=== PATIENT | female | born 1985 | race Caucasian/White ===

== ENCOUNTER 2016-05-15 20:05 | Observation (INO) | payer OTHER ==
[2016-05-15] MEDS ORDERED: Sodium Chloride 0.9% 1000 ML 1,000 ML IV STA (20:18)
[2016-05-15] MEDS ORDERED: TYLENOL 325 MG PO STA (20:18)
[2016-05-15] MEDS ORDERED: Vistaril 50 MG/ML IM ONE ×2 (20:19→20:29)
[2016-05-15 20:27] LABS: Mean Cell Volume 87.8 fl (78-100); Mean Corpuscular Hemoglobin 29.8 pg (26-32); Mean Platelet Volume 9.8 fl (6-9.5); Platelet Count 263 K/mm3 (150-450); Red Blood Count 4.93 M/mm3 (4.1-5.4); White Blood Count 21.9 K/mm3 (4.0-10.5)
[2016-05-15] MEDS ORDERED: Sodium Chloride 0.9% 1000 ML 1,000 ML ONE (20:29)
[2016-05-15] MEDS ORDERED: TYLENOL 325 MG ONE (20:29)
[2016-05-15] MEDS ORDERED: TORAdol 30 mg Injection ONE (20:31)
[2016-05-15] MEDS ORDERED: TORAdol 30 mg Injection IV ONE (20:33)
--- NOTE | 2016-05-15 20:39 | ERPHSYRPT ---
- History of Present Illness Time Seen by Provider: 05/15/16 20:11 Source: patient Patient Subjective Stated Complaint: pt has been in the car all day on a trip to [place] and she began feeling "bad all over " then tonight she started having aching in her chest with weakness no vomiting no shortness of breath - she has been having a heart work up for chest pain and family heart history - she has results of an echo pending -her blood pressure has been up and down recently and her mother has heart history Triage Nursing Assessment: pt is awake and alert but tearful states she just feels so bad Physician History: CC: aches all over Hx: 31 y/o patient of SHARONA Gómez. She has hx of some palpitation and heart problem and is undergoing workup with cardiology for pulmonary hypertension. She has frequent chest pains. Today she drove to [facility] to look at a camper. She developed full body aching, mylagias, hurts all over. Aching and pain in left chest worse than usual. Not short of breath. Normal urination although has had UTI in the past. No headache. No sore throat. Found to have fever right before coming to ER. She has severe malaise and feels terrible. She has not had menses for 3 years due to implants which were recently removed. Timing/Duration: today Severity: severe Allergies/Adverse Reactions: morphine Allergy (Verified 05/15/16 20:33) Home Medications: Propranolol HCl 1 tab PO BID 05/15/16 [History] Hx Tetanus, Diphtheria Vaccination/Date Given: Yes Hx Influenza Vaccination/Date Given: No Hx Pneumococcal Vaccination/Date Given: No Immunizations Up to Date: No - Review of Systems Constitutional: Fever, Chills, Fatigue, Malaise, Weakness Eyes: No Symptoms Ears, Nose, & Throat: No Nose Congestion, No Throat Pain Respiratory: No Cough Cardiac: Chest Pain, No Edema, No Syncope Abdominal/Gastrointestinal: No Abdominal Pain, No Nausea, No Vomiting, No Diarrhea Genitourinary Symptoms: No Dysuria Musculoskeletal: Myalgias, No Joint Redness, No Joint Pain Skin: No Cellulitis, No Rash Neurological: No Focal Weakness, No Headache, No Parasthesia All Other Systems: Reviewed and Negative - Past Medical History Pertinent Past Medical History: Yes Cardiac History: Hypertension - Past Surgical History Past Surgical History: Yes Musculoskeletal: Other Female Surgical History: Section Other Surgical History: Right Ankle - Social History Smoking Status: Never smoker Exposure to second hand smoke: No Patient Lives Alone: No Significant Family History: heart disease - Female History Hx Last Menstrual Period: 3 years - Nursing Vital Signs Nursing Vital Signs: Initial Vital Signs Temperature 99.4 F Temperature Source Oral Pulse Rate [] 72 Pulse Rate 84 Respiratory Rate 16 Blood Pressure [] 126/78 Pain Intensity 1 - Physical Exam General Appearance: alert, other (tearful and upset on arrival) Eye Exam: PERRL/EOMI Ears, Nose, Throat Exam: dry mucous membranes Neck Exam: normal inspection, non-tender, supple, No meningismus Respiratory Exam: normal breath sounds, lungs clear, No respiratory distress Cardiovascular Exam: regular rate/rhythm, normal heart sounds, No murmur, No friction rub, No gallop Gastrointestinal/Abdomen Exam: soft, No tenderness, No distention, No mass, No guarding Back Exam: normal inspection Extremity Exam: normal inspection, normal range of motion, No calf tenderness, No pedal edema Neurologic Exam: alert, oriented x 3, cooperative, sensation nml, No motor deficits Skin Exam: warm, dry, No rash SpO2 Interpretation: normal SpO2: 97 Oxygen Delivery: Room Air - Course Nursing assessment & vital signs reviewed: Yes EKG Interpreted by Me: RATE (102), Sinus Tach, NORMAL AXIS, NORMAL INTERVALS ( QTc 425), NORMAL QRS, NORMAL ST-T - Radiology Exams cxr X-ray Interpretation: Reviewed by me, Negative, No Pneumonia Ordered Tests: Active Orders 24 hr Category Date Time Status Cath for Specimen-Straight STAT Care 05/15/16 20:18 Active EKG-ER Only STAT Care 05/15/16 20:11 Active IV Insertion STAT Care 05/15/16 20:18 Active Pulse Oximetry (ED) STAT Care 05/15/16 20:18 Active CHEST 1 VIEW (PORTABLE) Stat Exams 05/15/16 20:18 Taken BLOOD CULTURE Stat Lab 05/15/16 20:15 Received CBC W DIFF Stat Lab 05/15/16 20:15 Completed CK-Creatinine Phosphokinase Stat Lab 05/15/16 22:05 Ordered CMP Stat Lab 05/15/16 20:15 Completed CRP, HIGH SENSITIVITY Stat Lab 05/15/16 22:05 Ordered CULTURE, THROAT Stat Lab 05/15/16 20:22 Received CULTURE,URINE Stat Lab 05/15/16 20:30 Received Erythrocyte Sedimentation Rate Stat Lab 05/15/16 20:15 Completed HCG QUALITATIVE,SERUM Stat Lab 05/15/16 20:15 Completed Lactic Acid Urgent Lab 05/15/16 20:22 Completed Manual Differential NC Stat Lab 05/15/16 20:15 Completed [place] Screen Stat Lab 05/15/16 22:10 Ordered RHEUMATOID FACTOR Stat Lab 05/15/16 22:05 Ordered STREP SCREEN-BETA A Stat Lab 05/15/16 20:22 Completed TROPONIN Stat Lab 05/15/16 20:15 Completed TSH [TSH, 3RD Generation] Stat Lab 05/15/16 22:10 Ordered UA W/ MICROSCOPIC Stat Lab 05/15/16 20:30 Completed Medication Summary Generic Name Dose Route Start Last Admin Trade Name Freq PRN Reason Stop Dose Admin Ceftriaxone Sodium/Dextrose 50 mls @ 100 mls/hr 05/15/16 22:11 Rocephin 1 Gm-D5w 50 Ml Bag IV 05/15/16 22:40 STAT ONE Discontinued Medications Generic Name Dose Route Start Last Admin Trade Name Freq PRN Reason Stop Dose Admin Acetaminophen 975 mg 05/15/16 20:18 05/15/16 20:39 Tylenol 325 Mg PO 05/15/16 20:19 975 mg STAT STA Administration Acetaminophen Confirm 05/15/16 20:29 Tylenol 325 Mg Administered 05/15/16 20:30 Dose 975 mg .ROUTE .STK-MED ONE Hydroxyzine HCl 50 mg 05/15/16 20:19 05/15/16 20:38 Vistaril 50 Mg/Ml IM 05/15/16 20:20 50 mg STAT ONE Administration Hydroxyzine HCl Confirm 05/15/16 20:29 Vistaril 50 Mg/Ml Administered 05/15/16 20:30 Dose 50 mg IM .STK-MED ONE Sodium Chloride 1,000 mls @ 999 mls/hr 05/15/16 20:18 05/15/16 20:40 Sodium Chloride 0.9% 1000 Ml IV 05/15/16 21:18 999 mls/hr .Q1H1M STA Administration Sodium Chloride Confirm 05/15/16 20:29 Sodium Chloride 0.9% 1000 Ml Administered 05/15/16 20:30 Dose 1,000 mls @ ud .ROUTE .STK-MED ONE Ketorolac Tromethamine 30 mg 05/15/16 20:33 05/15/16 20:38 Toradol 30 Mg Injection IV 05/15/16 20:34 30 mg STAT ONE Administration Ketorolac Tromethamine Confirm 05/15/16 20:31 Toradol 30 Mg Injection Administered 05/15/16 20:32 Dose 30 mg .ROUTE .K-[facility] ONE Lab/Rad Data: Laboratory Result Diagrams 05/15/16 20:15 05/15/16 20:15 Laboratory Results 05/15/16 05/15/16 05/15/16 Range/Units 20:30 20:22 20:22 WBC (4.0-10.5) K/mm3 RBC (4.1-5.4) M/mm3 Hgb (12.0-16.0) gm/dl Hct (35-47) % MCV (78-100) fl MCH (26-32) pg MCHC (32-36) g/dl RDW (11.5-14.0) % Plt Count (150-450) K/mm3 MPV (6-9.5) fl Segmented Neutrophils (36.0-66.0) % Lymphocytes (Manual) (24-44) % Monocytes (Manual) (0.0-12.0) % Eosinophils (Manual) (0.00-3.0) % Differential Comment Platelet Estimate (NORMAL) ESR (0-20) mm/hr Sodium (136-145) mEq/L Potassium (3.5-5.1) mEq/L Chloride (98-107) mEq/L Carbon Dioxide (21-32) mEq/L Anion Gap (5-15) MEQ/L BUN (9-20) mg/dL Creatinine (0.55-1.30) mg/dl Estimated GFR ML/MIN Glucose (70-110) MG/DL Lactic Acid 1.8 (0.4-2.0) Calcium (8.5-10.1) mg/dL Total Bilirubin (0.2-1.0) mg/dL AST (15-37) U/L ALT (12-78) U/L Alkaline Phosphatase (46-116) U/L Troponin I (0.000-0.056) ng/ml Serum Total Protein (6.4-8.2) gm/dL Albumin (3.4-5.0) g/dL Serum , Qual (Negative) Ur Collection Type CLEAN CATCH Urine Color YELLOW (YELLOW) Urine Appearance SLIGHTLY CLOUDY (CLEAR) Urine pH 7.0 (5-6) Ur Specific [place] 1.010 (1.005-1.025) Urine Protein NEGATIVE (Negative) Urine Glucose (UA) NEGATIVE (NEGATIVE) mg/dL Urine Ketones NEGATIVE (NEGATIVE) Urine Nitrite NEGATIVE (NEGATIVE) Urine Bilirubin NEGATIVE (NEGATIVE) Urine Urobilinogen 0.2 (0-1) mg/dL Urine WBC (Auto) SMALL (NEGATIVE) Urine RBC (Auto) NEGATIVE (0-5) Adam/ul Urine Microscopic WBC 2-5 (0-5) /HPF Ur Epithelial Cells FEW (FEW) /HPF Urine Bacteria MODERATE (NEGATIVE) /HPF Influenza Type A Ag NEGATIVE (NEGATIVE) Influenza Type B Ag NEGATIVE (NEGATIVE) RSV (PCR) NEGATIVE (Negative) Streptococcus Screen (Negative) Specimen Received 11/07/16:202905/15/16 05/15/16 05/15/16 Range/Units 20:22 20:15 20:15 WBC (4.0-10.5) K/mm3 RBC (4.1-5.4) M/mm3 Hgb (12.0-16.0) gm/dl Hct (35-47) % MCV (78-100) fl MCH (26-32) pg MCHC (32-36) g/dl RDW (11.5-14.0) % Plt Count (150-450) K/mm3 MPV (6-9.5) fl Segmented Neutrophils (36.0-66.0) % Lymphocytes (Manual) (24-44) % Monocytes (Manual) (0.0-12.0) % Eosinophils (Manual) (0.00-3.0) % Differential Comment Platelet Estimate (NORMAL) ESR 12 (0-20) mm/hr Sodium (136-145) mEq/L Potassium (3.5-5.1) mEq/L Chloride (98-107) mEq/L Carbon Dioxide (21-32) mEq/L Anion Gap (5-15) MEQ/L BUN (9-20) mg/dL Creatinine (0.55-1.30) mg/dl Estimated GFR ML/MIN Glucose (70-110) MG/DL Lactic Acid (0.4-2.0) Calcium (8.5-10.1) mg/dL Total Bilirubin (0.2-1.0) mg/dL AST (15-37) U/L ALT (12-78) U/L Alkaline Phosphatase (46-116) U/L Troponin I < 0.017 (0.000-0.056) ng/ml Serum Total Protein (6.4-8.2) gm/dL Albumin (3.4-5.0) g/dL Serum , Qual (Negative) Ur Collection Type Urine Color (YELLOW) Urine Appearance (CLEAR) Urine pH (5-6) Ur Specific [place]man (1.005-1.025) Urine Protein (Negative) Urine Glucose (UA) (NEGATIVE) mg/dL Urine Ketones (NEGATIVE) Urine Nitrite (NEGATIVE) Urine Bilirubin (NEGATIVE) Urine Urobilinogen (0-1) mg/dL Urine WBC (Auto) (NEGATIVE) Urine RBC (Auto) (0-5) Adam/ul Urine Microscopic WBC (0-5) /HPF Ur Epithelial Cells (FEW) /HPF Urine Bacteria (NEGATIVE) /HPF Influenza Type A Ag (NEGATIVE) Influenza Type B Ag (NEGATIVE) RSV (PCR) (Negative) Streptococcus Screen NEGATIVE (Negative) Specimen Received 05/15/16 05/15/16 05/15/16 Range/Units 20:15 20:15 20:15 WBC 21.9 H (4.0-10.5) K/mm3 RBC 4.93 (4.1-5.4) M/mm3 Hgb 14.7 (12.0-16.0) gm/dl Hct 43.3 (35-47) % MCV 87.8 (78-100) fl MCH 29.8 (26-32) pg MCHC 33.9 (32-36) g/dl RDW 13.0 (11.5-14.0) % Plt Count 263 (150-450) K/mm3 MPV 9.8 H (6-9.5) fl Segmented Neutrophils 78 H (36.0-66.0) % Lymphocytes (Manual) 13 L (24-44) % Monocytes (Manual) 8 (0.0-12.0) % Eosinophils (Manual) 1 (0.00-3.0) % Differential Comment NORMAL Platelet Estimate NORMAL (NORMAL) ESR (0-20) mm/hr Sodium 139 (136-145) mEq/L Potassium 3.7 (3.5-5.1) mEq/L Chloride 102 (98-107) mEq/L Carbon Dioxide 26.2 (21-32) mEq/L Anion Gap 14.3 (5-15) MEQ/L BUN 11 (9-20) mg/dL Creatinine 0.83 (0.55-1.30) mg/dl Estimated GFR > 60 ML/MIN Glucose 129 H (70-110) MG/DL Lactic Acid (0.4-2.0) Calcium 9.2 (8.5-10.1) mg/dL Total Bilirubin 0.4 (0.2-1.0) mg/dL AST 16 (15-37) U/L ALT 33 (12-78) U/L Alkaline Phosphatase 86 (46-116) U/L Troponin I (0.000-0.056) ng/ml Serum Total Protein 7.9 (6.4-8.2) gm/dL Albumin 3.7 (3.4-5.0) g/dL Serum , Qual NEGATIVE (Negative) Ur Collection Type Urine Color (YELLOW) Urine Appearance (CLEAR) Urine pH (5-6) Ur Specific [place]man (1.005-1.025) Urine Protein (Negative) Urine Glucose (UA) (NEGATIVE) mg/dL Urine Ketones (NEGATIVE) Urine Nitrite (NEGATIVE) Urine Bilirubin (NEGATIVE) Urine Urobilinogen (0-1) mg/dL Urine WBC (Auto) (NEGATIVE) Urine RBC (Auto) (0-5) Adam/ul Urine Microscopic WBC (0-5) /HPF Ur Epithelial Cells (FEW) /HPF Urine Bacteria (NEGATIVE) /HPF Influenza Type A Ag (NEGATIVE) Influenza Type B Ag (NEGATIVE) RSV (PCR) (Negative) Streptococcus Screen (Negative) Specimen Received - Progress Progress Note: 05/15/16 20:39 She has fever. Likley influenza with myalgias. Will treat with APAP, toradol, IVF. 05/15/16 22:02 Flu negative. She has fever and leukocytosis. Malaise and lethargy. She reports hx of JRA as a child. No recent steroids. Had echo and renal sonogram Tuesday- echo not available and renal doppler negative. She sees cardiology Dr Hernandez at [place]. Offered observation for further workup to include infectious and connective tissue. She is discussing with family. She ambulated to . IVF bolus given. 05/15/16 22:12 Pt agrees for observation. Called Dr Bowie. Connective tissue workup initiated. Will place in obs for IVF and further workup. Cultures pending. Will cover with rocephin. Discussed with Dr.: Jamir Will see patient in: hospital (observation) Counseled pt/family regarding: lab results, diagnosis, need for follow-up, rad results - Departure Time of Disposition: 22:13 Departure Disposition: Observation Clinical Impression: Fever, Leukocytosis, Hx of juvenile rheumatoid arthritis Condition: Fair Critical Care Time: No Referrals: LUCIANO GÓMEZ [Primary Care Provider] -
[2016-05-15 20:43] LABS: ALBUMIN 3.7 g/dL (3.4-5.0); ALKALINE PHOSPHATASE 86 U/L (46-116); ANION GAP 14.3 MEQ/L (5-15); BILIRUBIN,TOTAL 0.4 mg/dL (0.2-1.0); BLOOD UREA NITROGEN 11 mg/dL (9-20); CHLORIDE 102 mEq/L (98-107); Carbon Dioxide 26.2 mEq/L (21-32); Glucose 129 MG/DL (70-110); Potassium 3.7 mEq/L (3.5-5.1); SGOT/AST 16 U/L (15-37); SGPT/ALT 33 U/L (12-78); SODIUM 139 mEq/L (136-145); Total Protein 7.9 gm/dL (6.4-8.2)
[2016-05-15 21:01] LABS: Bacteria MODERATE /HPF (NEGATIVE); COMPLETE URINE MICROSCOPIC? YES; Collection Type CLEAN CATCH; Epithelial Cells FEW /HPF (FEW)
[2016-05-15 21:14] LABS: Eosinophil 1 % (0.00-3.0); Platelet Estimate NORMAL (NORMAL); Total Cells Counted 100
[2016-05-15] MEDS ORDERED: ROCEPHIN 1 Gm-D5w 50 ml Bag** 50 ML IV ONE ×2 (22:11→22:20)
[2016-05-15] MEDS ORDERED: TORAdol 30 mg Injection IV PRN (23:05)
[2016-05-15] MEDS ORDERED: TYLENOL 325 MG PO PRN (23:05)
[2016-05-15] MEDS: D5W/0.45NS W/ 20mEq KCl 1000 ML 1,000 ML IV SCH (23:09)
[2016-05-16 05:58] LABS: BASOPHIL % 0.2 % (0.0-0.4); Eosinophil % 1.5 % (0.00-5.0); Granulocytes % 64.9 % (36.0-66.0); Mean Cell Volume 90.3 fl (78-100); Mean Corpuscular Hemoglobin 30.2 pg (26-32); Mean Platelet Volume 9.7 fl (6-9.5); Monocytes % 9.4 % (0.0-12.0); Platelet Count 216 K/mm3 (150-450); Red Blood Count 4.24 M/mm3 (4.1-5.4); Red Cell Distribution Width 12.9 % (11.5-14.0); White Blood Count 13.7 K/mm3 (4.0-10.5)
[2016-05-16 06:09] LABS: ALBUMIN 2.8 g/dL (3.4-5.0); ALKALINE PHOSPHATASE 69 U/L (46-116); ANION GAP 11.6 MEQ/L (5-15); BILIRUBIN,TOTAL 0.3 mg/dL (0.2-1.0); BLOOD UREA NITROGEN 12 mg/dL (9-20); CHLORIDE 109 mEq/L (98-107); Carbon Dioxide 25.3 mEq/L (21-32); Glucose 104 MG/DL (70-110); Potassium 3.6 mEq/L (3.5-5.1); SGOT/AST 31 U/L (15-37); SGPT/ALT 29 U/L (12-78); SODIUM 142 mEq/L (136-145); Total Protein 6.2 gm/dL (6.4-8.2)
[2016-05-16] MEDS: D5W/0.45NS W/ 20mEq KCl 1000 ML 1,000 ML IV SCH (07:00)
--- NOTE | 2016-05-16 08:55 | XRAY ---
Indication: Fever, lethargy, malaise, and elevated WBC. Comparison: None Portable chest demonstrates normal heart and lungs. Bony thorax intact with mild double curvature scoliosis.
--- NOTE | 2016-05-16 12:18 | PCM.SSS ---
History of Present Illness - Chief Complaint Chief Complaint: FEVER AND LEUKOCYTOSIS History of Present Illness: is a 31 year old female with a long at times nonspecific medical history who came to ER last night c/o several hours of myalgias and found to have a fever. Her WBC were elevated to 21,000 but otherwise her findings were nonspecific. She notes that for the past 3 wks she has been undergoing a cardiac workup after being found to have BP in the 150s systolic at her routine [facility] appointment. Of note, her appointments with [facility] [employer] Luciano Gómez revealed normal BP. 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 Pt states for the past 4 mo she has had consistent sinus, ear, and throat issues and was having several x/wk nose bleeds. Was treated multiple times with antibiotics. Has episodes of lightheadedness and palpitations - being evaluated by cardiology. - Review of Systems Constitutional: Fever, Fatigue, Malaise Ears, Nose, & Throat: Ear Pain, Sinus Drainage, Epistaxis, Throat Pain Cardiac: Palpitations Musculoskeletal: Arthralgias, Joint Pain, Myalgias Neurological: Dizziness Hematologic/Lymphatic: Easy Bleeding All Other Systems: Reviewed and Negative Medications & Allergies Home Medications: Home Medication List Cefdinir 300 mg PO BID #20 capsule 05/16/16 [Rx] Propranolol HCl [Inderal LA] 60 mg PO BID 05/16/16 [History Confirmed 05/16/16] Allergies/Adverse Reactions: Allergies Allergy/AdvReac Type Severity Reaction Status Date / Time morphine Allergy Severe Difficulty Verified 05/16/16 00:11 Breathing - Past Medical History Past Medical History: Yes Neurological History: Migraines ENT History: No Pertinent History Cardiac History: Hypertension Respiratory History: No Pertinent History Endocrine Medical History: No Pertinent History Musculoskelatal History: Fractures, Other History: Other Pyscho-Social History: No Pertinent History Reproductive Disorders: No Pertinent History Comment: HAS FX BOTH ANKLES THERE IS A SCREW IN THE RIGHT ANKEL. PT ALSO HAS A HX OF JUVINILE ARTHRITIS - Female History Hx Last Menstrual Period: 3 years Are you now?: No - Past Surgical History Past Surgical History: Yes Neuro Surgical History: No Pertinent History Cardiac History: No Pertinent History Respiratory Surgery: No Pertinent History GI Surgical History: No Pertinent History Genitourinary Surgical Hx: No Pertinent History Musculskeletal Surgical Hx: Other Female Surgical History: Section Other Surgical History: 3 CE SECTIONS, ORTHO SURGERY ON BOTH ANKLES - Social History Smoking Status: Never smoker Exposure to second hand smoke: No Alcohol: None Drug Use: none Significant Family History: heart disease - Physical Exam Vital Signs: Vital Signs - 24 hr Temp Pulse Pulse Resp BP Pulse Ox 05/16/16 11:20 98.5 F 71 17 89/53 96 05/16/16 08:00 98 F 71 18 119/73 96 05/16/16 04:00 97.8 F 80 18 110/62 96 05/15/16 23:30 99.1 F 83 16 102/52 97 05/15/16 22:13 97 05/15/16 21:52 84 16 126/78 97 05/15/16 21:15 99.4 F 96 H 16 130/87 97 05/15/16 20:35 72 97 05/15/16 20:17 101.6 F 100 H 16 130/80 97 General Appearance: no apparent distress Neurologic Exam: alert, oriented x 3, cooperative Eye Exam: eyes nml inspection Neck Exam: normal inspection, non-tender, No lymphadenopathy Respiratory Exam: normal breath sounds, lungs clear, No crackles/rales, No rhonchi, No wheezing Cardiovascular Exam: regular rate/rhythm, normal heart sounds, No murmur Gastrointestinal/Abdomen Exam: soft, normal bowel sounds, No tenderness, No distention, No guarding, No rebound Back Exam: normal inspection, No CVA tenderness Extremity Exam: No pedal edema, No swelling Skin Exam: normal color, warm, dry Results - Labs Lab/Micro Results: Lab Results-Last 24 Hours 05/16/16 05/16/16 Range/Units 05:30 05:30 WBC 13.7 H (4.0-10.5) K/mm3 RBC 4.24 (4.1-5.4) M/mm3 Hgb 12.8 (12.0-16.0) gm/dl Hct 38.3 (35-47) % MCV 90.3 (78-100) fl MCH 30.2 (26-32) pg MCHC 33.4 (32-36) g/dl RDW 12.9 (11.5-14.0) % Plt Count 216 (150-450) K/mm3 MPV 9.7 H (6-9.5) fl Gran % 64.9 (36.0-66.0) % Lymphocytes % 24.0 (24.0-44.0) % Monocytes % 9.4 (0.0-12.0) % Eosinophils % 1.5 (0.00-5.0) % Basophils % 0.2 (0.0-0.4) % Basophils # 0.03 (0-0.4) Sodium 142 (136-145) mEq/L Potassium 3.6 (3.5-5.1) mEq/L Chloride 109 H (98-107) mEq/L Carbon Dioxide 25.3 (21-32) mEq/L Anion Gap 11.6 (5-15) MEQ/L BUN 12 (9-20) mg/dL Creatinine 0.77 (0.55-1.30) mg/dl Estimated GFR > 60 ML/MIN Glucose 104 (70-110) MG/DL Calcium 8.3 L (8.5-10.1) mg/dL Total Bilirubin 0.3 (0.2-1.0) mg/dL AST 31 (15-37) U/L ALT 29 (12-78) U/L Alkaline Phosphatase 69 (46-116) U/L Serum Total Protein 6.2 L (6.4-8.2) gm/dL Albumin 2.8 L (3.4-5.0) g/dL Assessment/Plan (1) Fever Current Visit: Yes Status: Acute Assessment & Plan: unsure etiology; will send pt home on po cefdinir 300mg 1 po BID x 10d. She is to f/u with PCP and get referral to rheumatology. Throat, urine, and blood cultures pending. Code(s): R50.9 - FEVER, UNSPECIFIED (2) Hx of juvenile rheumatoid arthritis Current Visit: Yes Status: Acute Assessment & Plan: Initial rheum workup pending. Code(s): Z87.39 - PERSONAL HISTORY OF DISEASES OF THE MS SYS AND CONN TISS (3) Leukocytosis Current Visit: Yes Status: Acute Qualifiers: Leukocytosis type: unspecified Qualified Code(s): D72.829 - Elevated white blood cell count, unspecified Assessment & Plan: WIth left shift. Cultures are pending. Unknown etiology; however, will go ahead and treat as above. Code(s): D72.829 - ELEVATED WHITE BLOOD CELL COUNT, UNSPECIFIED Hospital Summary - Hospital Course Hospital Course: Pt admitted with myalgias and fever, elevated WBC count to 21,000. Treated with IV rocephin even though any possible nidus of infection is unknown. WBC decreased today and pt feeling better; still fatigued (notes this has been present for the past 2 weeks). Rheumatological workup started. CRP elevated, RF neg; other labs pending. Will f/u with PCP and rheumatology; continue cardiology workup. Home on po antibiotics. - Vitals & Intake/Output Vital Signs: Vital Signs Temperature 98.5 F 05/16/16 11:20 Pulse Rate 71 05/16/16 11:20 Respiratory Rate 17 05/16/16 11:20 Blood Pressure 89/53 05/16/16 11:20 O2 Sat by Pulse Oximetry 96 05/16/16 11:20 Intake & Output: Intake & Output 05/14/16 05/15/16 05/16/16 05/17/16 11:59 11:59 11:59 11:59 Intake Total 1776 Balance 1776 Weight 92.986 kg - Lab Result Diagrams: 05/16/16 05:30 05/16/16 05:30 Lab Results-Last 24 Hrs: Lab Results-Last 24 Hours 05/16/16 05/16/16 Range/Units 05:30 05:30 WBC 13.7 H (4.0-10.5) K/mm3 RBC 4.24 (4.1-5.4) M/mm3 Hgb 12.8 (12.0-16.0) gm/dl Hct 38.3 (35-47) % MCV 90.3 (78-100) fl MCH 30.2 (26-32) pg MCHC 33.4 (32-36) g/dl RDW 12.9 (11.5-14.0) % Plt Count 216 (150-450) K/mm3 MPV 9.7 H (6-9.5) fl Gran % 64.9 (36.0-66.0) % Lymphocytes % 24.0 (24.0-44.0) % Monocytes % 9.4 (0.0-12.0) % Eosinophils % 1.5 (0.00-5.0) % Basophils % 0.2 (0.0-0.4) % Basophils # 0.03 (0-0.4) Sodium 142 (136-145) mEq/L Potassium 3.6 (3.5-5.1) mEq/L Chloride 109 H (98-107) mEq/L Carbon Dioxide 25.3 (21-32) mEq/L Anion Gap 11.6 (5-15) MEQ/L BUN 12 (9-20) mg/dL Creatinine 0.77 (0.55-1.30) mg/dl Estimated GFR > 60 ML/MIN Glucose 104 (70-110) MG/DL Calcium 8.3 L (8.5-10.1) mg/dL Total Bilirubin 0.3 (0.2-1.0) mg/dL AST 31 (15-37) U/L ALT 29 (12-78) U/L Alkaline Phosphatase 69 (46-116) U/L Serum Total Protein 6.2 L (6.4-8.2) gm/dL Albumin 2.8 L (3.4-5.0) g/dL - Discharge Disposition: Home, Self-Care Condition: Stable Prescriptions: New Cefdinir 300 mg PO BID #20 capsule Continue Propranolol HCl [Inderal LA] 60 mg PO BID Follow up with: LUCIANO GÓMEZ [NON-STAFF PHY W/O PRIVILEGES] -
[2016-05-16 13:41] VITALS: BP 111/58; PULSE 70; O2SAT 99
[2016-05-16] MEDS ORDERED: ROCEPHIN 1 Gm-D5w 50 ml Bag** 50 ML IV SCH (22:00)
== END 2016-05-16 14:05 | disposition home or self-care (01) ==
LOC: ED 20:05 → MED SURG 22:55
PROVIDERS: ADMIT Family Medicine; ATTEND Family Medicine
DX: R50.9 Fever, unspecified (principal); Z87.39 Personal history of other diseases of the musculoskeletal system and connective tissue; D72.829 Elevated white blood cell count, unspecified; Z79.899 Other long term (current) drug therapy
CPT/HCPCS: 36000; 36415; 71010; 80053; 81000; 82550; 83605; 84443; 84484; 84703; 85025; 85652; 86038; 86140; 86160; 86308; 86430; 87040; 87070; 87077; 87086; 87430; 87631; 93005; 96360; 96365; 96372; 96374; 99285; G0378; J0696; J1885; J3410; P9612

== ENCOUNTER 2017-02-21 16:00 | Emergency (ER) | payer BC, OTHER ==
[2017-02-21] MEDS ORDERED: Phenergan 25 MG INJ IM ONE (16:26)
--- NOTE | 2017-02-21 16:30 | ERPHSYRPT ---
- History of Present Illness Time Seen by Provider: 02/21/17 16:21 Historian: patient, family (mother) Patient Subjective Stated Complaint: Pt states "I think I have food poisening. I ate scallops at [employer] last night at 8 pm and woke up this morning vomiting, diarrhea, belly pain, headache. I cannot keep anything down." Triage Nursing Assessment: Pt alert and oriented X3, skin pwd. PT moaning. Pt ambulates with an upright steady gait, able to speak in clear full sentences. Physician History: CC: vomiting/diarrhea Hx: 32 y/o patient of Dr Bowie with nausea, vomiting, diarrhea since 3AM. Muscle aches. Hurts all over. No fever. Abdominal discomfort. Ate shrimp scampi at [employer] at 8PM. No one else in her constitution party ate this nor is anyone else ill. Symptoms severe. 3 prior C-sections. Timing/Duration: today Allergies/Adverse Reactions: morphine Allergy (Severe, Verified 05/16/16 00:11) Difficulty Breathing Home Medications: Lisdexamfetamine Dimesylate [Vyvanse] 40 mg PO DAILY 02/21/17 [History] Hx Tetanus, Diphtheria Vaccination/Date Given: No Hx Influenza Vaccination/Date Given: No Hx Pneumococcal Vaccination/Date Given: No Immunizations Up to Date: Yes - Review of Systems Constitutional: Malaise, Weakness, No Fever, No Chills Eyes: No Symptoms Ears, Nose, & Throat: No Symptoms Respiratory: No Symptoms Cardiac: No Chest Pain Abdominal/Gastrointestinal: Abdominal Pain, Nausea, Vomiting, Diarrhea Genitourinary Symptoms: No Symptoms Musculoskeletal: Myalgias Skin: No Rash Neurological: No Focal Weakness, No Parasthesia All Other Systems: Reviewed and Negative - Past Medical History Pertinent Past Medical History: Yes Neurological History: Migraines ENT History: No Pertinent History Cardiac History: Hypertension Respiratory History: No Pertinent History Endocrine Medical History: No Pertinent History Musculoskeletal History: Fractures, Other History: Other Psycho-Social History: No Pertinent History Female Reproductive Disorders: No Pertinent History Other Medical History: JRA- lupus - Past Surgical History Past Surgical History: Yes Neuro Surgical History: No Pertinent History Cardiac: No Pertinent History Respiratory: No Pertinent History Gastrointestinal: No Pertinent History Genitourinary: No Pertinent History Musculoskeletal: Other Female Surgical History: Section Other Surgical History: 3 CE SECTIONS, ORTHO SURGERY ON BOTH ANKLES - Social History Smoking Status: Never smoker Exposure to second hand smoke: No Drug Use: none Patient Lives Alone: No Significant Family History: heart disease - Female History Hx Last Menstrual Period: 02/14/2017 Hx Now: No - Nursing Vital Signs Nursing Vital Signs: Initial Vital Signs Temperature 98.7 F 02/21/17 16:11 Pulse Rate 88 02/21/17 16:11 Respiratory Rate 18 02/21/17 16:11 Blood Pressure 107/75 02/21/17 16:11 O2 Sat by Pulse Oximetry 99 02/21/17 16:11 Pain Scale Pain Intensity 6 - Physical Exam General Appearance: alert Eye Exam: PERRL/EOMI Ears, Nose, Throat Exam: normal ENT inspection, moist mucous membranes Neck Exam: normal inspection, non-tender, supple Respiratory Exam: No respiratory distress Cardiovascular Exam: regular rate/rhythm Gastrointestinal/Abdomen Exam: soft, No distention, No mass, No guarding Back Exam: normal inspection, No vertebral tenderness Extremity Exam: normal inspection, normal range of motion, No pedal edema Neurologic Exam: alert, oriented x 3, cooperative, sensation nml, No motor deficits Skin Exam: warm, dry SpO2 Interpretation: normal SpO2: 99 Oxygen Delivery: Room Air - Course Nursing assessment & vital signs reviewed: Yes - Radiology Exams AAS X-ray Interpretation: Interpreted by me (Nonspecific bowel gas pattern, scoliosis, no obstructions) Ordered Tests: Active Orders 24 hr Category Date Time Status Cath for Specimen-Straight STAT Care 02/21/17 16:27 Active IV Insertion STAT Care 02/21/17 16:26 Active OBSTR/ACUTE ABDOMEN SERIES Stat Exams 02/21/17 16:26 Taken CBC W DIFF Stat Lab 02/21/17 16:43 Completed CK-Creatinine Phosphokinase Stat Lab 02/21/17 16:43 Completed CMP Stat Lab 02/21/17 16:43 Completed CULTURE,URINE Stat Lab 02/21/17 16:55 Received HCG QUALITATIVE,SERUM Stat Lab 02/21/17 16:43 Completed UA W/ MICROSCOPIC Stat Lab 02/21/17 16:55 Completed Medication Summary Generic Name Dose Route Start Last Admin Trade Name Freq PRN Reason Stop Dose Admin Lactated Ringer's 1,000 mls @ 999 mls/hr 02/21/17 17:16 02/21/17 17:24 Lactated Ringers IV 02/21/17 18:16 999 mls/hr .Q1H1M ONE Administration Discontinued Medications Generic Name Dose Route Start Last Admin Trade Name Makenna PRN Reason Stop Dose Admin Lactated Ringer's Confirm 02/21/17 17:19 Lactated Ringers Administered 02/21/17 17:20 Dose 1,000 mls @ ud IV .STK-MED ONE Ketorolac Tromethamine 30 mg 02/21/17 17:15 02/21/17 17:26 Toradol 30 Mg Injection IV 02/21/17 17:16 30 mg STAT ONE Administration Ketorolac Tromethamine Confirm 02/21/17 17:19 Toradol 30 Mg Injection Administered 02/21/17 17:20 Dose 30 mg .ROUTE .STK-MED ONE Promethazine HCl 25 mg 02/21/17 16:26 02/21/17 16:47 Phenergan 25 Mg Inj IM 02/21/17 16:27 25 mg STAT ONE Administration Promethazine HCl Confirm 02/21/17 16:45 Phenergan 25 Mg Inj Administered 02/21/17 16:46 Dose 25 mg .ROUTE .STK-MED ONE Lab/Rad Data: Laboratory Result Diagrams 02/21/17 16:43 02/21/17 16:43 Laboratory Results 02/21/17 02/21/17 02/21/17 Range/Units 16:55 16:43 16:43 WBC (4.0-10.5) K/mm3 RBC (4.1-5.4) M/mm3 Hgb (12.0-16.0) gm/dl Hct (35-47) % MCV (78-100) fl MCH (26-32) pg MCHC (32-36) g/dl RDW (11.5-14.0) % Plt Count (150-450) K/mm3 MPV (6-9.5) fl Gran % (36.0-66.0) % Lymphocytes % (24.0-44.0) % Monocytes % (0.0-12.0) % Eosinophils % (0.00-5.0) % Basophils % (0.0-0.4) % Basophils # (0-0.4) Sodium (136-145) mEq/L Potassium (3.5-5.1) mEq/L Chloride (98-107) mEq/L Carbon Dioxide (21-32) mEq/L Anion Gap (5-15) MEQ/L BUN (9-20) mg/dL Creatinine (0.55-1.30) mg/dl Estimated GFR ML/MIN Glucose (70-110) MG/DL Calcium (8.5-10.1) mg/dL Total Bilirubin (0.2-1.0) mg/dL AST (15-37) U/L ALT (12-78) U/L Alkaline Phosphatase (46-116) U/L Creatine Kinase 56 (26-192) U/L Serum Total Protein (6.4-8.2) gm/dL Albumin (3.4-5.0) g/dL Serum , Qual NEGATIVE (Negative) Ur Collection Type VOID Urine Color YELLOW (YELLOW) Urine Appearance CLEAR (CLEAR) Urine pH 7.0 (5-6) Ur Specific [place] 1.010 (1.005-1.025) Urine Protein TRACE (Negative) Urine Ketones NEGATIVE (NEGATIVE) Urine Blood 5-10 (0-5) Adam/ul Urine Nitrite NEGATIVE (NEGATIVE) Urine Bilirubin SMALL (NEGATIVE) Urine Urobilinogen NORMAL (0-1) mg/dL Ur Leukocyte Esterase TRACE (NEGATIVE) Urine Microscopic RBC 0-2 (0-2) /HPF Urine Microscopic WBC 10-15 (0-5) /HPF Ur Epithelial Cells MODERATE (FEW) /HPF Urine Bacteria FEW (NEGATIVE) /HPF Urine Mucus MODERATE (NEGATIVE) /HPF Urine Culture Reflexed YES (NO) Urine Glucose NEGATIVE (NEGATIVE) mg/dL Specimen Received 02/21/17 [id number] 02/21/17 02/21/17 Range/Units 16:43 16:43 WBC 10.9 H (4.0-10.5) K/mm3 RBC 5.02 (4.1-5.4) M/mm3 Hgb 14.8 (12.0-16.0) gm/dl Hct 44.2 (35-47) % MCV 88.0 (78-100) fl MCH 29.5 (26-32) pg MCHC 33.5 (32-36) g/dl RDW 13.6 (11.5-14.0) % Plt Count 239 (150-450) K/mm3 MPV 9.5 (6-9.5) fl Gran % 80.6 H (36.0-66.0) % Lymphocytes % 11.2 L (24.0-44.0) % Monocytes % 7.7 (0.0-12.0) % Eosinophils % 0.3 (0.00-5.0) % Basophils % 0.2 (0.0-0.4) % Basophils # 0.02 (0-0.4) Sodium 138 (136-145) mEq/L Potassium 3.4 L (3.5-5.1) mEq/L Chloride 102 (98-107) mEq/L Carbon Dioxide 26.3 (21-32) mEq/L Anion Gap 13.0 (5-15) MEQ/L BUN 10 (9-20) mg/dL Creatinine 0.85 (0.55-1.30) mg/dl Estimated GFR > 60 ML/MIN Glucose 103 (70-110) MG/DL Calcium 8.7 (8.5-10.1) mg/dL Total Bilirubin 0.80 (0.2-1.0) mg/dL AST 23 (15-37) U/L ALT 48 (12-78) U/L Alkaline Phosphatase 87 (46-116) U/L Creatine Kinase (26-192) U/L Serum Total Protein 8.1 (6.4-8.2) gm/dL Albumin 3.7 (3.4-5.0) g/dL Serum , Qual (Negative) Ur Collection Type Urine Color (YELLOW) Urine Appearance (CLEAR) Urine pH (5-6) Ur Specific [place] (1.005-1.025) Urine Protein (Negative) Urine Ketones (NEGATIVE) Urine Blood (0-5) Adam/ul Urine Nitrite (NEGATIVE) Urine Bilirubin (NEGATIVE) Urine Urobilinogen (0-1) mg/dL Ur Leukocyte Esterase (NEGATIVE) Urine Microscopic RBC (0-2) /HPF Urine Microscopic WBC (0-5) /HPF Ur Epithelial Cells (FEW) /HPF Urine Bacteria (NEGATIVE) /HPF Urine Mucus (NEGATIVE) /HPF Urine Culture Reflexed (NO) Urine Glucose (NEGATIVE) mg/dL Specimen Received - Progress Progress Note: 02/21/17 17:57 IVF bolus, phenergan, toradol given. She has no UTI symptoms so await urine culture. She wants t o try zofran ODT at home. Will release with instr. Counseled pt/family regarding: lab results, diagnosis, need for follow-up, rad results - Departure Time of Disposition: 18:01 Departure Disposition: Home Clinical Impression: Vomiting and diarrhea Condition: Stable Critical Care Time: No Referrals: ANAYA BOWIE [Primary Care Provider] - Instructions: Vomiting -- Adult, Diarrhea and Traveler's Diarrhea -- Adult Additional Instructions: VOMITING AND DIARRHEA 1. Take only small amounts of clear, cool liquids at frequent intervals as tolerated for the next 24-48 hours. Avoid milk products and orange juice. Clear liquids are those liquids which you can see through. 2. Pedialyte and popsicles are recommended clear liquids. 3. If the condition worsens you should contact your family physician or return to the emergency department for re-evaluation. No driving today and stay with family. Rx zofran ODT. Sip fluids. Prescriptions: Ondansetron ODT 4 MG [Zofran Odt 4 mg] 1 tab PO Q6H PRN PRN #10 tab.rapdis PRN Reason: Nausea/Vomiting
[2017-02-21 16:44] LABS: BASOPHIL % 0.2 % (0.0-0.4); Eosinophil % 0.3 % (0.00-5.0); Granulocytes % 80.6 % (36.0-66.0); Lymphocytes % 11.2 % (24.0-44.0); Mean Corpuscular Hemoglobin 29.5 pg (26-32); Mean Platelet Volume 9.5 fl (6-9.5); Monocytes % 7.7 % (0.0-12.0); Platelet Count 239 K/mm3 (150-450); Red Blood Count 5.02 M/mm3 (4.1-5.4); Red Cell Distribution Width 13.6 % (11.5-14.0); White Blood Count 10.9 K/mm3 (4.0-10.5)
[2017-02-21] MEDS ORDERED: Phenergan 25 MG INJ ONE (16:45)
[2017-02-21 17:06] LABS: Bilirubin SMALL (NEGATIVE); COMPLETE URINE MICROSCOPIC? YES; Collection Type VOID; Glucose NEGATIVE (NEGATIVE); Leukocyte Esterase TRACE (NEGATIVE)
[2017-02-21 17:07] LABS: ADD URINE CULTURE? YES (NO); Bacteria FEW /HPF (NEGATIVE); Epithelial Cells MODERATE /HPF (FEW); Mucus MODERATE /HPF (NEGATIVE)
[2017-02-21 17:08] LABS: ALBUMIN 3.7 g/dL (3.4-5.0); ALKALINE PHOSPHATASE 87 U/L (46-116); BLOOD UREA NITROGEN 10 mg/dL (9-20); CHLORIDE 102 mEq/L (98-107); Carbon Dioxide 26.3 mEq/L (21-32); Glucose 103 MG/DL (70-110); Potassium 3.4 mEq/L (3.5-5.1); SGOT/AST 23 U/L (15-37); SGPT/ALT 48 U/L (12-78); SODIUM 138 mEq/L (136-145); Total Protein 8.1 gm/dL (6.4-8.2)
[2017-02-21] MEDS ORDERED: TORAdol 30 mg Injection IV ONE (17:15)
[2017-02-21] MEDS ORDERED: Lactated Ringers 1,000 ML IV ONE ×2 (17:16→17:19)
[2017-02-21] MEDS ORDERED: TORAdol 30 mg Injection ONE (17:19)
[2017-02-21 18:31] VITALS: BP 118/73; PULSE 84; O2SAT 96
--- NOTE | 2017-02-22 08:51 | XRAY ---
Indication: Abdominal pain. Nausea and vomiting. Comparison: Portable chest May 15, 2016. 2 views of the abdomen nonacute and nonobstructed. Query 5 mm left lower renal calculus. Remaining solid organs unremarkable. Osseous structures intact with double curvature thoracolumbar scoliosis. Single PA chest again demonstrates normal heart and lungs. Impression: 1. Nonacute nonobstructed abdomen. 2. Query left renal micro-calculus. CT renal stone study may yield further information if clinically warranted. 3. Stable normal 1 view chest and incidental scoliosis.
== END 2017-02-21 18:31 | disposition home or self-care (01) ==
LOC: ED 16:00
DX: R11.2 Nausea with vomiting, unspecified (principal); R19.7 Diarrhea, unspecified; R10.9 Unspecified abdominal pain
CPT/HCPCS: 36415; 74022; 80053; 81000; 82550; 84703; 85025; 87086; 96360; 96372; 96374; 99284; J1885; J2550